=== PATIENT | female | born 1940 | race Caucasian/White ===

== ENCOUNTER 2017-04-29 08:06 | Emergency (ER) | payer MEDICARE, OTHER ==
[2017-04-29] MEDS ORDERED: OXYCODONE-ACETAMINOPHEN 5-325 MG TABLET PO ONE (08:44)
--- NOTE | 2017-04-29 08:44 | ER Document Report ---
ED Fall - General Chief Complaint: Fall Stated Complaint: FALL Time Seen by Provider: 04/29/17 08:15 Notes: Patient is a 76 year old female who presents to the Ed status post mechanical fall this AM. She states she was going to her bathroom when she lost her balance and fell on her left side. Suffered head injury without LOC, AMS, confusion, headache, N/V. Denies blood thinners. Admits to chest wall pain on her left side with pain on deep inhalation and certain movement, improves with bracing that side as well as ice. Denies shortness of breath. Admits to cough over the past three days. PMH: COPD on 2L NC, OA PSH: B/l TKA SH: former smoker TRAVEL OUTSIDE OF THE [place] IN LAST 30 DAYS: No - Related data Allergies/Adverse Reactions: amoxicillin trihydrate [From Augmentin] Allergy (Verified 06/15/15 12:23) clarithromycin [From Biaxin] Allergy (Verified 06/15/15 12:23) Potassium Clavulanate * [From Augmentin] Allergy (Verified 06/15/15 12:23) vancomycin [Vancomycin] Allergy (Verified 06/15/15 12:23) unk abx Allergy (Uncoded 06/15/15 12:23) Past Medical History - Social History Smoking Status: Former Smoker Frequency of alcohol use: None Drug Abuse: None Family History: Reviewed & Not Pertinent Patient has suicidal ideation: No Patient has homicidal ideation: No - Past Medical History Cardiac Medical History: Reports: Hx Congestive Heart Failure, Hx Hypercholesterolemia, Hx Hypertension Pulmonary Medical History: Reports: Hx COPD Renal/ Medical History: Denies: Hx Peritoneal Dialysis GI Medical History: Reports: Hx Ulcer Past Surgical History: Reports: Hx Breast Surgery, Hx Cholecystectomy, Hx Orthopedic Surgery - bilat knee replacement. - Immunizations Hx Diphtheria, Pertussis, Tetanus Vaccination: No Review of Systems - Review of Systems Constitutional: No symptoms reported Cardiovascular: See HPI Respiratory: See HPI Gastrointestinal: No symptoms reported Neurological/Psychological: See HPI -: Yes All other systems reviewed and negative Physical Exam - Vital signs Vitals: Temp Pulse Resp BP Pulse Ox 98 F 96 24 H 116/66 95 04/29/17 08:31 04/29/17 08:31 04/29/17 08:31 04/29/17 08:31 04/29/17 08:31 - Notes Notes: PHYSICAL EXAMINATION: GENERAL: Well-appearing, well-nourished and in no acute distress. GCS 15 HEAD: Atraumatic, normocephalic. EYES: Pupils equal round and reactive to light, extraocular movements intact, sclera anicteric, conjunctiva are normal. ENT: Nares patent, oropharynx clear without exudates. Moist mucous membranes. No hemanotympanum . No blood in nares. No dental fracture NECK: Normal range of motion, supple without lymphadenopathy. Trachea midline LUNGS: chest wall tender over left lower ribs. breath sounds clear to auscultation bilaterally and equal. No wheezes rales or rhonchi. HEART: Regular rate and rhythm without murmurs. Pulses intact all throughout. ABDOMEN: Soft, nontender, nondistended abdomen. No guarding, no rebound. No masses appreciated. Musculoskeletal: Normal range of motion, no pitting or edema. No cyanosis. Hip non tender, stable. NEUROLOGICAL: Cranial nerves grossly intact. Normal speech, normal gait. Normal sensory, motor, and reflex exams. PSYCH: Normal mood, normal affect. SKIN: Warm, No active bleeding. Minimal bruising over left eye brow without tenderness, deformity Course - Re-evaluation Re-evalutation: 04/29/17 10:16 Patient is a 76-year-old female who is hemodynamically stable, no acute distress and afebrile. Chest x-ray shows evidence of a nondisplaced left seventh rib fracture. No evidence of skull fracture or acute hemorrhage noted on CT of the head. No evidence of acute injury noted on CT of the cervical spine. Patient feels better after medication for pain. We will ambulate her on pulse ox with her home O2 prior to discharge. 04/29/17 11:37 Patient able to ambulate with assitance per her baseline, satting low 90's without associated tachypnea. patient states she feels well and requesting to go home. Calling her son for transportation - Vital Signs Vital signs: Temp Pulse Resp BP Pulse Ox 98 F 96 24 H 116/66 95 04/29/17 08:31 04/29/17 08:31 04/29/17 08:31 04/29/17 08:31 04/29/17 08:31 - Diagnostic Test Radiology reviewed: Image reviewed, Reports reviewed Discharge - Discharge Clinical Impression: Fall Qualifiers: Encounter type: initial encounter Qualified Code(s): W19.XXXA - Unspecified fall, initial encounter Rib fracture Qualifiers: Encounter type: initial encounter Rib fracture type: single rib Fracture type: closed Laterality: left Qualified Code(s): S22.32XA - Fracture of one rib, left side, initial encounter for closed fracture Instructions: Rib Injuries and Fractures ([facility]) Additional Instructions: How to use the incentive spirometer 1.Sit on the edge of your bed if possible, or sit up as far as you can in bed. 2.Hold the incentive spirometer in an upright position. 3.Place the mouthpiece in your mouth and seal your lips tightly around it. 4.Breathe in slowly and as deeply as possible. Notice the yellow piston rising toward the top of the column. The yellow indicator should reach the blue outlined area. 5.Hold your breath as long as possible. Then exhale slowly and allow the piston to fall to the bottom of the column. 6.Rest for a few seconds and repeat steps one to five at least 10 times every hour. 7.Position the yellow indicator on the left side of the spirometer to show your best effort. Use the indicator as a goal to work toward during each slow deep breath. 8.After each set of 10 deep breaths, cough to be sure your lungs are clear. If you have an incision, support your incision when coughing by placing a pillow firmly against it. 9.Once you are able to get out of bed safely, take frequent walks and practice the cough. Prescriptions: Oxycodone HCl/Acetaminophen [Percocet 5-325 mg Tablet] 1 - 2 tab PO Q4H PRN #15 tablet PRN Reason: Referrals: DAVID STONE MD [Primary Care Provider] - Follow up in 3-5 days
--- NOTE | 2017-04-29 09:10 | RADIOLOGY REPORT (SQ) ---
EXAM DESCRIPTION: CT HEAD WITHOUT COMPLETED DATE/TIME: 04/29/2017 8:58 am REASON FOR STUDY: fall COMPARISON: Motion artifact TECHNIQUE: Axial images acquired through the brain without intravenous contrast. Images reviewed wi th bone, brain and subdural windows. Images stored on PACS. All CT scanners at this facility use dose modulation, iterative reconstruction, and/or weight based d osing when appropriate to reduce radiation dose to as low as reasonably achievable (ALARA). [facility]: Dose Right [facility]: CareDose [facility]: Dose Right [facility]: Teradose 4D [facility]: Smart Hurricane Party RADIATION DOSE: CT Rad equipment meets quality standard of care and radiation dose reduction techniq ues were employed. CTDIvol: 49.0 mGy. DLP: 783 mGy-cm. mGy. LIMITATIONS: Motion artifact FINDINGS: Motion artifact throughout the study. On images without motion, no gross acute intracranial hemorrhage, mass effect, or midline shift. No gross acute large territory ischemic change. There is bifrontal low attenuation likely from chronic small vessel disease. IMPRESSION: Limited study. No acute changes EVIDENCE OF ACUTE STROKE: NO. COMMENT: Quality ID # [id number]: Final reports with documentation of one or more dose reduction techniques (e.g., Automated exposure control, adjustment of the mA and/or kV according to patient size, use of iterative reconstruction technique) TECHNICAL DOCUMENTATION: JOB ID: [id number] [employer]- All Rights Reserved
--- NOTE | 2017-04-29 09:38 | RADIOLOGY REPORT (SQ) ---
EXAM DESCRIPTION: CT CERVICAL SPINE WITHOUT COMPLETED DATE/TIME: 04/29/2017 9:07 am REASON FOR STUDY: fall COMPARISON: CT brain same date TECHNIQUE: Axial images acquired through the cervical spine without intravenous contrast. Images re viewed with lung, soft tissue and bone windows. Reconstructed coronal and sagittal MPR images review ed. Images stored on PACS. All CT scanners at this facility use dose modulation, iterative reconstruction, and/or weight based d osing when appropriate to reduce radiation dose to as low as reasonably achievable (ALARA). [facility]: Dose Right [facility]: CareDose [facility]: Dose Right [facility]: Teradose 4D [facility]: Smart mii RADIATION DOSE: CT Rad equipment meets quality standard of care and radiation dose reduction techniq ues were employed. CTDIvol: 29.7 mGy. DLP: 584 mGy-cm. mGy. LIMITATIONS: Streak artifact from body habitus over the lower cervical region FINDINGS: ALIGNMENT: Anatomic, with minimal anterolisthesis of C3 over C4 related to facet arthropat hy. Mild anterolisthesis of C7 over T1 related to advanced facet arthropathy. MINERALIZATION: Normal. VERTEBRAL BODIES: No fractures or dislocation. DISCS: Multilevel disc space narrowing with osteophytes. FACETS, LATERAL MASSES, POSTERIOR ELEMENTS: Facet arthropathy. No fractures. No dislocation. No ac hamilton findings. HARDWARE: None in the spine. VISUALIZED RIBS: No fractures. LUNG APICES AND SOFT TISSUES: No significant or acute findings. Old calcified nuchal ligament. OTHER: No other significant finding. IMPRESSION: Limited negative study. Diffuse degenerative changes. No acute displaced fracture. TECHNICAL DOCUMENTATION: JOB ID: [id number] Quality ID # [id number]: Final reports with documentation of one or more dose reduction techniques (e.g., Au tomated exposure control, adjustment of the mA and/or kV according to patient size, use of iterative reconstruction technique) 2010 [employer]- All Rights Reserved
--- NOTE | 2017-04-29 09:41 | RADIOLOGY REPORT (SQ) ---
EXAM DESCRIPTION: RIBS LEFT W/PA CHEST COMPLETED DATE/TIME: 04/29/2017 9:15 am REASON FOR STUDY: fall COMPARISON: AP chest 11/17/2015 TECHNIQUE: Frontal view of the chest and additional views of the left ribs acquired. NUMBER OF VIEWS: PA chest, left rib detail three views LIMITATIONS: None. FINDINGS: FRONTAL CXR: No acute infiltrates. Minimal left lower pleural thickening adjacent to a no ndisplaced lateral left 7th rib fracture. No pneumothorax. No pleural effusions. Moderate to marke d cardiomegaly. RIBS: Acute nondisplaced left lateral 7th rib fracture. OTHER: Advanced arthritis both shoulders IMPRESSION: Minimal left pleural thickening adjacent to a nondisplaced acute left lateral 7th rib fr acture COMMENT: SITE OF TRAUMA/COMPLAINT MARKED/STAMP COMPLETED: YES. TECHNICAL DOCUMENTATION: JOB ID: [id number] [employer]- All Rights Reserved
[2017-04-29] MEDS ORDERED: ALBUTEROL SULFATE 0.083% NEB 2.5 MG/3 ML AMPUL NEB ONE (10:05)
[2017-04-29 13:26] VITALS: BP 120/56
== END 2017-04-29 13:03 | disposition home or self-care (01) ==
LOC: ER 08:06
DX: S22.32XA Fracture of one rib, left side, initial encounter for closed fracture (principal); S09.90XA Unspecified injury of head, initial encounter; R07.89 Other chest pain; W19.XXXA Unspecified fall, initial encounter; Y93.89 Activity, other specified; R06.82 Tachypnea, not elsewhere classified; R05 Cough; I10 Essential (primary) hypertension; J44.9 Chronic obstructive pulmonary disease, unspecified; Z87.891 Personal history of nicotine dependence; Z88.0 Allergy status to penicillin; Z88.1 Allergy status to other antibiotic agents
CPT/HCPCS: 94640; 99284; 71101; 70450; 72125; A9270 ×2

== ENCOUNTER 2018-10-10 15:23 | Emergency (ER) | payer MEDICARE, OTHER ==
[2018-10-10 15:27] VITALS: BP 138/53
--- NOTE | 2018-10-10 16:18 | ER Document Report ---
ED Medical Screen (RME) - General Chief Complaint: General Weakness Stated Complaint: GENERAL WEAKNESS Time Seen by Provider: 10/10/18 16:12 Primary Care Provider: DAVID STONE MD [Primary Care Provider] - Follow up as needed Mode of Arrival: Medic Information source: Patient, Relative Notes: Patient presents emergency department with feeling weak. She reports she went outside on her patio using her walker and sat outside for a while and became very weak. Patient also reports that she has sores to her bottom that are bleeding and she believes she is bleeding too much. She denies fever vomiting diarrhea no complaints of chest pain. Patient is short of breath is on home oxygen 95% with 2 L nasal cannula. And also is a hemophilia. Patient's biggest concern at this time are the sores on her bottom that are bleeding. I have greeted and performed a rapid initial assessment of this patient. A comprehensive ED assessment and evaluation of the patient, analysis of test results and completion of the medical decision making process will be conducted by additional ED providers. Dictation of this chart was performed using voice recognition software; therefore, there may be some unintended grammatical errors. TRAVEL OUTSIDE OF THE [place] IN LAST 30 DAYS: No - Related Data Allergies/Adverse Reactions: ANNE Inhibitors Allergy (Verified 10/10/18 15:25) amoxicillin trihydrate [From Augmentin] Allergy (Verified 06/15/15 12:23) clarithromycin [From Biaxin] Allergy (Verified 06/15/15 12:23) NSAIDS (Non-Steroidal Anti-Inflamma Allergy (Verified 10/10/18 15:25) Potassium Clavulanate * [From Augmentin] Allergy (Verified 06/15/15 12:23) sulindac [From Clinoril] Allergy (Verified 10/10/18 15:25) vancomycin [Vancomycin] Allergy (Verified 06/15/15 12:23) unk abx Allergy (Uncoded 06/15/15 12:23) Past Medical History - Past Medical History Cardiac Medical History: Reports: Hx Congestive Heart Failure, Hx Hypercholesterolemia, Hx Hypertension Pulmonary Medical History: Reports: Hx COPD Renal/ Medical History: Denies: Hx Peritoneal Dialysis GI Medical History: Reports: Hx Ulcer Past Surgical History: Reports: Hx Breast Surgery, Hx Cholecystectomy, Hx Orthopedic Surgery - bilat knee replacement. - Immunizations Hx Diphtheria, Pertussis, Tetanus Vaccination: No Physical Exam - Vital signs Vitals: Temp Pulse Resp BP Pulse Ox 99.0 F 96 22 H 138/53 H 95 10/10/18 15:26 10/10/18 15:26 10/10/18 15:26 10/10/18 15:26 10/10/18 15:26 Course - Vital Signs Vital signs: Temp Pulse Resp BP Pulse Ox 99.0 F 96 22 H 138/53 H 95 10/10/18 15:26 10/10/18 15:26 10/10/18 15:26 10/10/18 15:26 10/10/18 15:26 Doctor's Discharge - Discharge Referrals: DAVID STONE MD [Primary Care Provider] - Follow up as needed
[2018-10-10 17:44] LABS: ABSOLUTE BASOPHILS # (AUTO) 0.1 10^3/uL (0.0-0.2); ABSOLUTE EOSINOPHILS # (AUTO) 0.2 10^3/uL (0.0-0.6); ABSOLUTE LYMPHOCYTES (AUTO) 0.8 10^3/uL (0.5-4.7); ABSOLUTE MONOCYTES (AUTO) 0.5 10^3/uL (0.1-1.4); ABSOLUTE NEUT (AUTO) 4.8 10^3/uL (1.7-8.2); EOSINOPHILS % (AUTO) 2.9 % (0-6); HEMATOCRIT 30.6 % (36.0-47.0); HEMOGLOBIN 9.9 g/dL (12.0-15.5); MEAN CORPUSCULAR HEMOGLOBIN 29.5 pg (27.0-33.4); MEAN CORPUSCULAR HGB CONC 32.2 g/dL (32.0-36.0); MEAN CORPUSCULAR VOLUME 92 fl (80-97); MONOCYTES % (AUTO) 8.5 % (3-13); PLATELET COUNT 182 10^3/uL (150-450); RED BLOOD COUNT 3.35 10^6/uL (3.72-5.28); RED CELL DISTRIBUTION WIDTH 16.2 % (11.5-14.0); SEGMENTED NEUTROPHILS % (AUTO) 75.6 % (42-78); TOTAL CELLS COUNTED % (AUTO) 100 %; WHITE BLOOD COUNT 6.3 10^3/uL (4.0-10.5)
[2018-10-10 18:08] LABS: ALANINE AMINOTRANSFERASE 22 U/L (9-52); ALBUMIN 4.2 g/dL (3.5-5.0); ALKALINE PHOSPHATASE 90 U/L (38-126); ANION GAP 7 (5-19); ASPARTATE AMINO TRANSFERASE 18 U/L (14-36); BILIRUBIN,DIRECT 0.3 mg/dL (0.0-0.4); BILIRUBIN,TOTAL 0.6 mg/dL (0.2-1.3); BLOOD UREA NITROGEN 32 mg/dL (7-20); CALCIUM 9.4 mg/dL (8.4-10.2); CARBON DIOXIDE 37 mmol/L (22-30); CHLORIDE 95 mmol/L (98-107); GLUCOSE 97 mg/dL (75-110); POTASSIUM 4.6 mmol/L (3.6-5.0); SODIUM 138.8 mmol/L (137-145)
--- NOTE | 2018-10-10 18:29 | ER Document Report ---
ED General - General Chief Complaint: General Weakness Stated Complaint: GENERAL WEAKNESS Time Seen by Provider: 10/10/18 16:12 Primary Care Provider: [facility] [Provider Group] - Follow up tomorrow DAVID STONE MD [Primary Care Provider] - Follow up tomorrow Mode of Arrival: Medic Notes: Patient is a 78-year-old female with multiple chronic medical conditions including hypertension, CHF and COPD that presents to the emergency department for chief complaint of lightheadedness. Patient states that she went outside today to try to feel better because she was having some nausea was feeling generally weak over the past few days, and after she was outside she was feel little better she got up and felt somewhat lightheaded afterwards, but she did not pass out. She mentions that she has increased on her Lasix, from 40 mg to 80 mg twice daily, for the most part she is been taking at 80 mg every day, and most days taking it twice daily for the past 2 weeks. She has noticed that the swelling in her legs is gone down. She is also on several other medications for blood pressure. She does wear oxygen at home, has not had a increase in anytime recently. She also mentions that she has 2 bedsores, that she is been trying to treat at home, without much improvement. There are on both of her thighs on the posterior aspects. She states occasionally she gets some bleeding from them, has not noticed any pus drainage. She denies any fevers, chills, night sweats, chest pain, vomiting or abdominal pain. Past Medical History: COPD, CHF, hypertension, osteoarthritis, chronic kidney disease Past Surgical History: Total knee arthroplasties Social History: Denies tobacco, alcohol or drug use. Family History: Reviewed and noncontributory for presenting illness Allergies: Reviewed, see documented allergy list. REVIEW OF SYSTEMS: Other than noted above, the 12 point review of systems was reviewed with the patient and were negative, all pertinent findings are included in the HPI. PHYSICAL EXAMINATION: Vital signs reviewed, nursing noted reviewed. GENERAL: Morbidly obese, elderly female, but in no acute distress HEAD: Atraumatic, normocephalic. EYES: Eyes appear normal, extraocular movements intact, sclera anicteric, conjunctiva are normal. ENT: nares patent, oropharynx clear without exudates. Moist mucous membranes. NECK: Normal range of motion, supple without lymphadenopathy LUNGS: Trace wheezing noted bilaterally in all lung zhao, but no acute respir atory distress. HEART: Regular rate and rhythm without murmurs ABDOMEN: Soft, nontender, normoactive bowel sounds. No rebound, guarding, or rigidity. No masses appreciated. EXTREMITIES: good range of motion, trace pedal edema bilaterally in the lower extremities, mild tenderness palpation of the posterior thighs which she is noted to have decubitus ulcers. NEUROLOGICAL: No focal neurological deficits. Moves all extremities spontaneously Motor and sensory grossly intact on exam. PSYCH: Normal mood, normal affect. SKIN: Warm, Dry, normal turgor, candidal rash noted under the patient's pannus bilaterally, worse on the left compared to the right, no bleeding, there are 2 unstageable decubitus ulcers noted on the patient's posterior thighs, no active bleeding or drainage at this time. TRAVEL OUTSIDE OF THE [place] IN LAST 30 DAYS: No - Related Data Allergies/Adverse Reactions: ANNE Inhibitors Allergy (Verified 10/10/18 15:25) amoxicillin trihydrate [From Augmentin] Allergy (Verified 06/15/15 12:23) clarithromycin [From Biaxin] Allergy (Verified 06/15/15 12:23) NSAIDS (Non-Steroidal Anti-Inflamma Allergy (Verified 10/10/18 15:25) Potassium Clavulanate * [From Augmentin] Allergy (Verified 06/15/15 12:23) sulindac [From Clinoril] Allergy (Verified 10/10/18 15:25) vancomycin [Vancomycin] Allergy (Verified 06/15/15 12:23) unk abx Allergy (Uncoded 06/15/15 12:23) Past Medical History - General Information source: Patient, Relative - Social History Smoking Status: Never Smoker Frequency of alcohol use: None Drug Abuse: None Family History: Reviewed & Not Pertinent Patient has suicidal ideation: No Patient has homicidal ideation: No - Past Medical History Cardiac Medical History: Reports: Hx Congestive Heart Failure, Hx Hype rcholesterolemia, Hx Hypertension Pulmonary Medical History: Reports: Hx COPD Renal/ Medical History: Denies: Hx Peritoneal Dialysis GI Medical History: Reports: Hx Ulcer Past Surgical History: Reports: Hx Breast Surgery, Hx Cholecystectomy, Hx Orthopedic Surgery - bilat knee replacement. - Immunizations Hx Diphtheria, Pertussis, Tetanus Vaccination: No Physical Exam - Vital signs Vitals: Temp Pulse Resp BP Pulse Ox 99.0 F 96 22 H 138/53 H 95 10/10/18 15:26 10/10/18 15:26 10/10/18 15:26 10/10/18 15:26 10/10/18 15:26 Course - Re-evaluation Re-evalutation: Patient seen and examined vital signs reviewed. Laboratory data and/or imaging were ordered as appropriate for the patient's presenting symptoms and complaint, with consideration of any critical or life threatening conditions that may be associated with their obtained history and exam as noted above. Patient was treated with small bolus of IV fluids of 250 mL's as the patient was noted to be mildly hypertensive, and this did improve her blood pressure to a stable range, without overloading her. Results were reviewed when available and demonstrated contraction alkalosis, chronic kidney disease, somewhat worsened from her prior. She was noted to have anemia, which apparently is chronic according to the patient. The patient was re-evaluated and was hemodynamically stable, and felt improved, her wounds were dressed in the emergency department, advised to follow-up with the wound clinic, believe the patient was over diuresed, likely causing her lightheadedness earlier today, and orthostasis, advised her to follow-up with her primary care physician tomorrow to discuss decreasing her Lasix dosing, perhaps to 60 mg versus 80, she was agreeable to this, she was given referral to wound care, and given a prescription for miconazole powder for her candidal rash. Results were discussed with the patient at this point, after careful consideration I feel that that patient can be discharged from the emergency department, the patient was educated treatments and reasons to return to the emergency department based on their presumed diagnosis as noted above, they were advised to followup with a primary care physician in 2-3 days. Patient was agreeable to plan of care. *Note is created using voice recognition software and may contain spelling, syntax or grammatical errors. Laboratory 10/10/18 10/10/18 10/10/18 17:30 17:30 19:26 WBC 6.3 RBC 3.35 L Hgb 9.9 L Hct 30.6 L MCV 92 MCH 29.5 MCHC 32.2 RDW 16.2 H Plt Count 182 Seg Neutrophils % 75.6 Lymphocytes % 12.0 L Monocytes % 8.5 Eosinophils % 2.9 Basophils % 1.0 Absolute Neutrophils 4.8 Absolute Lymphocytes 0.8 Absolute Monocytes 0.5 Absolute Eosinophils 0.2 Absolute Basophils 0.1 Sodium 138.8 Potassium 4.6 Chloride 95 L Carbon Dioxide 37 H Anion Gap 7 BUN 32 H Creatinine 1.39 H Est GFR ( Amer) 44 L Est GFR (Non-Af Amer) 36 L Glucose 97 Calcium 9.4 Total Bilirubin 0.6 Direct Bilirubin 0.3 Neonat Total Bilirubin Not Reportable Neonat Direct Bilirubin Not Reportable Neonat Indirect Bili Not Reportable AST 18 ALT 22 Alkaline Phosphatase 90 Total Protein 7.0 Albumin 4.2 Urine Color YELLOW Urine Appearance SLIGHTLY-CLOUDY Urine pH 8.0 Ur Specific Mode 1.012 Urine Protein NEGATIVE Urine Glucose (UA) NEGATIVE Urine Ketones NEGATIVE Urine Blood NEGATIVE Urine Nitrite NEGATIVE Urine Bilirubin NEGATIVE Urine Urobilinogen NEGATIVE Ur Leukocyte Esterase NEGATIVE Urine WBC (Auto) 1 Urine RBC (Auto) 1 Urine Bacteria (Auto) TRACE Squamous Epi Cells Auto 7 Urine Mucus (Auto) RARE Urine Ascorbic Acid NEGATIVE - Vital Signs Vital signs: Temp Pulse Resp BP Pulse Ox 99.0 F 96 22 H 138/53 H 95 10/10/18 15:26 10/10/18 15:26 10/10/18 15:26 10/10/18 15:26 10/10/18 15:26 - Laboratory Result Diagrams: 10/10/18 17:30 10/10/18 17:30 Laboratory results interpreted by me: 10/10/18 10/10/18 17:30 17:30 RBC 3.35 L Hgb 9.9 L Hct 30.6 L RDW 16.2 H Lymphocytes % 12.0 L Chloride 95 L Carbon Dioxide 37 H BUN 32 H Creatinine 1.39 H Est GFR ( Amer) 44 L Est GFR (Non-Af Amer) 36 L Discharge - Discharge Clinical Impression: Dehydration, Candidal dermatitis, Metabolic alkalosis Pressure ulcer Qualifiers: Pressure injury location: thigh Pressure injury stage: unspecified pressure injury stage Laterality: unspecified laterality Qualified Code(s): L89.209 - Pressure ulcer of unspecified hip, unspecified stage Condition: Stable Disposition: HOME, SELF-CARE Instructions: Dehydration ([facility]) Additional Instructions: Please follow-up with your primary care physician as well as the wound clinic, you got overly dehydrated from too much Lasix, you need to call to discuss this with them. I also recommend following up with the wound clinic, to properly treat end-stage the wounds on the back of your legs, also use the powder for the rash on your abdomen. If you have worsening symptoms, feel lightheaded or pass out, please return to the emergency department and call 911. Prescriptions: RX: Miconazole Nitrate [Antifungal Powder] 1 applic TP BID #71 gm Referrals: DAVID STONE MD [Primary Care Provider] - Follow up tomorrow [facility] [Provider Group] - Follow up tomorrow
[2018-10-10] MEDS ORDERED: NORMAL SALINE 250 ML IV ONE (18:43)
--- NOTE | 2018-10-10 19:27 | EKG REPORT ---
SEVERITY:- ABNORMAL ECG - SINUS RHYTHM RIGHT BUNDLE BRANCH BLOCK : Confirmed by: Mario Andrew MD 10-Oct-2018 19:26:45
[2018-10-10] MEDS ORDERED: IPRATROPIUM/ALBUTEROL 0.5-2.5 MG/3 ML AMPUL NEB ONE ×2 (19:38→19:41)
[2018-10-10 20:06] LABS: APPEARANCE,URINE SLIGHTLY-CLOUDY; BILIRUBIN,URINE NEGATIVE (NEGATIVE); COLOR,URINE YELLOW; GLUCOSE, URINE NEGATIVE (NEGATIVE); KETONES,URINE NEGATIVE (NEGATIVE); LEUKOCYTE ESTERASE,URINE NEGATIVE (NEGATIVE); NITRITE,URINE NEGATIVE (NEGATIVE); PROTEIN,URINE NEGATIVE (NEGATIVE); URINE SPECIFIC GRAVITY 1.012; UROBILINOGEN,URINE NEGATIVE mg/dL (<2.0)
== END 2018-10-10 21:11 | disposition home or self-care (01) ==
LOC: ER 15:23
DX: E86.0 Dehydration (principal); B37.2 Candidiasis of skin and nail; L89.40 Pressure ulcer of contiguous site of back, buttock and hip, unspecified stage; I13.0 Hypertensive heart and chronic kidney disease with heart failure and stage 1 through stage 4 chronic kidney disease, or unspecified chronic kidney disease; I50.9 Heart failure, unspecified; N18.9 Chronic kidney disease, unspecified; D63.1 Anemia in chronic kidney disease; Z79.899 Other long term (current) drug therapy; E87.3 Alkalosis; R53.1 Weakness; R42 Dizziness and giddiness; J44.9 Chronic obstructive pulmonary disease, unspecified; Z99.81 Dependence on supplemental oxygen; Z88.8 Allergy status to other drugs, medicaments and biological substances; Z88.0 Allergy status to penicillin; Z88.1 Allergy status to other antibiotic agents
CPT/HCPCS: 93005; 94640; 99285; 96360; 36415; 85025; 80053; 81001; 93010; J7050; A9270; J7620

== ENCOUNTER 2019-02-10 13:50 | Inpatient (IN) | payer MEDICARE, OTHER ==
[2019-02-10 15:00] LABS: ALKALINE PHOSPHATASE 93 U/L (38-126); ASPARTATE AMINO TRANSFERASE 16 U/L (14-36); BILIRUBIN,DIRECT 0.2 mg/dL (0.0-0.4); BILIRUBIN,TOTAL 0.6 mg/dL (0.2-1.3); BLOOD UREA NITROGEN 26 mg/dL (7-20); CALCIUM 9.5 mg/dL (8.4-10.2); CHLORIDE 91 mmol/L (98-107); CREATINE KINASE 32 U/L (30-135); GLUCOSE 103 mg/dL (75-110); POTASSIUM 5.4 mmol/L (3.6-5.0); TOTAL PROTEIN 6.6 g/dL (6.3-8.2)
[2019-02-10 15:07] LABS: ABSOLUTE EOSINOPHILS # (AUTO) 0.1 10^3/uL (0.0-0.6); ABSOLUTE LYMPHOCYTES (AUTO) 1.6 10^3/uL (0.5-4.7); ABSOLUTE MONOCYTES (AUTO) 0.7 10^3/uL (0.1-1.4); ABSOLUTE NEUT (AUTO) 6.7 10^3/uL (1.7-8.2); ANION GAP 8 (5-19); BASOPHILS % (AUTO) 0.5 % (0-2); CARBON DIOXIDE 38 mmol/L (22-30); HEMATOCRIT 32.9 % (36.0-47.0); HEMOGLOBIN 10.1 g/dL (12.0-15.5); LYMPHOCYTES % (AUTO) 17.6 % (13-45); MEAN CORPUSCULAR HEMOGLOBIN 27.7 pg (27.0-33.4); MEAN CORPUSCULAR HGB CONC 30.6 g/dL (32.0-36.0); MEAN CORPUSCULAR VOLUME 90 fl (80-97); MONOCYTES % (AUTO) 7.1 % (3-13); PLATELET COUNT 178 10^3/uL (150-450); RED BLOOD COUNT 3.64 10^6/uL (3.72-5.28); RED CELL DISTRIBUTION WIDTH 16.4 % (11.5-14.0); SEGMENTED NEUTROPHILS % (AUTO) 73.8 % (42-78); TOTAL CELLS COUNTED % (AUTO) 100 %; WHITE BLOOD COUNT 9.2 10^3/uL (4.0-10.5)
[2019-02-10 15:12] LABS: CREATINE KINASE MB 0.41 ng/mL (<4.55)
[2019-02-10 15:13] LABS: TROPONIN I < 0.012 ng/mL
[2019-02-10 15:24] LABS: VENOUS BLOOD BASE EXCESS 8.9 mmol/L; VENOUS BLOOD HCO3 38.2 mmol/L (20-32); VENOUS BLOOD PH 7.28 (7.30-7.42)
--- NOTE | 2019-02-10 16:05 | RADIOLOGY REPORT (SQ) ---
EXAM DESCRIPTION: CHEST SINGLE VIEW COMPLETED DATE/TIME: 02/10/2019 3:56 pm REASON FOR STUDY: bed 4 resp distress COMPARISON: None. EXAM PARAMETERS: NUMBER OF VIEWS: One view. TECHNIQUE: Single frontal radiographic view of the chest acquired. RADIATION DOSE: NA LIMITATIONS: None. FINDINGS: LUNGS AND PLEURA: Diffuse bilateral interstitial opacities. No dense consolidation. No l arge effusion. No pneumothorax. MEDIASTINUM AND HILAR STRUCTURES: No masses. Contour normal. HEART AND VASCULAR STRUCTURES: Enlarged cardiac silhouette and central vascular congestion, stable. Aortic atherosclerosis. BONES: No acute findings. Decreased mineralization. Thoracic spondylosis. HARDWARE: None in the chest. OTHER: No other significant finding. IMPRESSION: Stable cardiomegaly with vascular congestion and interstitial edema. No large effusion. TECHNICAL DOCUMENTATION: JOB ID: [id number] [employer]- All Rights Reserved Reading location - IP/workstation name: [email or web address]
[2019-02-10] MEDS ORDERED: IPRATROPIUM/ALBUTEROL 0.5-2.5 MG/3 ML AMPUL NEB ONE (16:15)
--- NOTE | 2019-02-10 16:36 | ER Document Report ---
ED Respiratory Problem - General Chief Complaint: Shortness Of Breath Stated Complaint: DIFFICULTY BREATHING Time Seen by Provider: 02/10/19 14:40 Mode of Arrival: Medic Information source: Patient, Emergency Med Personnel Notes: Patient is an 78-year-old female with past medical history of COPD presenting to the emergency department in acute respiratory distress. EMS reports show that patient had a neighbor called EMS due to increased shortness of breath. They state on their arrival she had oxygen saturations in the mid 70s. Patient reports cough and congestion lately, denies any fever, nausea or vomiting. Patient's family members are at bedside. TRAVEL OUTSIDE OF THE [place] IN LAST 30 DAYS: No - Related Data Allergies/Adverse Reactions: ANNE Inhibitors Allergy (Verified 10/10/18 15:25) amoxicillin trihydrate [From Augmentin] Allergy (Verified 06/15/15 12:23) clarithromycin [From Biaxin] Allergy (Verified 06/15/15 12:23) NSAIDS (Non-Steroidal Anti-Inflamma Allergy (Verified 10/10/18 15:25) Potassium Clavulanate * [From Augmentin] Allergy (Verified 06/15/15 12:23) sulindac [From Clinoril] Allergy (Verified 10/10/18 15:25) vancomycin [Vancomycin] Allergy (Verified 06/15/15 12:23) unk abx Allergy (Uncoded 06/15/15 12:23) Past Medical History - General Information source: Patient - Social History Smoking Status: Former Smoker Frequency of alcohol use: None Drug Abuse: None Family History: Reviewed & Not Pertinent Patient has suicidal ideation: No Patient has homicidal ideation: No - Past Medical History Cardiac Medical History: Reports: Hx Congestive Heart Failure, Hx Hypercholesterolemia, Hx Hypertension Pulmonary Medical History: Reports: Hx COPD Renal/ Medical History: Denies: Hx Peritoneal Dialysis GI Medical History: Reports: Hx Ulcer Past Surgical History: Reports: Hx Breast Surgery, Hx Cholecystectomy, Hx Orthopedic Surgery - bilat knee replacement. - Immunizations Hx Diphtheria, Pertussis, Tetanus Vaccination: No Review of Systems - Review of Systems Constitutional: denies: Chills, Fever EENT: No symptoms reported Cardiovascular: Dyspnea. denies: Chest pain, Palpitations Respiratory: Cough, Short of breath, Wheezing Gastrointestinal: No symptoms reported Genitourinary: No symptoms reported Female Genitourinary: No symptoms reported Musculoskeletal: No symptoms reported Skin: No symptoms reported Hematologic/Lymphatic: No symptoms reported Neurological/Psychological: No symptoms reported Physical Exam - Vital signs Vitals: Temp 98.2 F 02/10/19 14:41 - Notes Notes: PHYSICAL EXAMINATION: GENERAL: Disheveled, appears younger than stated age, morbidly obese. HEAD: Atraumatic, normocephalic. EYES: Pupils equal round and reactive to light, extraocular movements intact, conjunctiva are normal. ENT: Nares patent, oropharynx clear without exudates. Moist mucous membranes. NECK: Normal range of motion, supple without lymphadenopathy LUNGS: Expiratory wheezes noted bilaterally, increased work of breathing. HEART: Regular rate and rhythm without murmurs ABDOMEN: Soft, nontender, nondistended abdomen. No guarding, no rebound. No masses appreciated. Female : No CVA tenderness. Musculoskeletal: Normal range of motion, no pitting or edema. No cyanosis. NEUROLOGICAL: Cranial nerves grossly intact. Normal speech, normal gait. Normal sensory, motor exams PSYCH: Normal mood, normal affect. SKIN: Warm, Dry, normal turgor, no rashes or lesions noted. Course - Re-evaluation Re-evalutation: At the time of my initial evaluation patient has already been in the department for 1 hour. When I went into the patient she was on 4 L of oxygen via nasal cannula. Her oxygen saturations were 95% however her work of breathing was continued to be increased. I did immediately place orders for BiPAP and called them personally to come place patient on BiPAP. Labs as recorded below, VBG was drawn very shortly after patient was placed on BiPAP. On reevaluation patient's work of breathing has dramatically improved after being placed on BiPAP. Urinalysis is still pending as patient has not been able to provide a urine sample. Patient reports she is feeling mildly improved and is resting more comfortably on BiPAP. Laboratory 02/10/19 02/10/19 02/10/19 14:20 14:20 14:20 WBC 9.2 RBC 3.64 L Hgb 10.1 L Hct 32.9 L MCV 90 MCH 27.7 MCHC 30.6 L RDW 16.4 H Plt Count 178 Lymph % (Auto) 17.6 Anderson % (Auto) 7.1 Eos % (Auto) 1.0 Baso % (Auto) 0.5 Absolute Neuts (auto) 6.7 Absolute Lymphs (auto) 1.6 Absolute Monos (auto) 0.7 Absolute Eos (auto) 0.1 Absolute Basos (auto) 0.0 Seg Neutrophils % 73.8 VBG pH VBG pCO2 VBG HCO3 VBG Base Excess Sodium 137.1 Potassium 5.4 H Chloride 91 L Carbon Dioxide 38 H Anion Gap 8 BUN 26 H Creatinine 1.27 H Est GFR ( Amer) 49 L Est GFR (MDRD) Non-Af 40 L Glucose 103 Calcium 9.5 Total Bilirubin 0.6 Direct Bilirubin 0.2 Neonat Total Bilirubin Not Reportable Neonat Direct Bilirubin Not Reportable Neonat Indirect Bili Not Reportable AST 16 ALT 12 Alkaline Phosphatase 93 Creatine Kinase 32 CK-MB (CK-2) 0.41 Troponin I < 0.012 NT-Pro-B Natriuret Pep Total Protein 6.6 Albumin 4.0 02/10/19 02/10/19 14:20 15:10 WBC RBC Hgb Hct MCV MCH MCHC RDW Plt Count Lymph % (Auto) Anderson % (Auto) Eos % (Auto) Baso % (Auto) Absolute Neuts (auto) Absolute Lymphs (auto) Absolute Monos (auto) Absolute Eos (auto) Absolute Basos (auto) Seg Neutrophils % VBG pH 7.28 L VBG pCO2 84.0 H* VBG HCO3 38.2 H VBG Base Excess 8.9 Sodium Potassium Chloride Carbon Dioxide Anion Gap BUN Creatinine Est GFR ( Amer) Est GFR (MDRD) Non-Af Glucose Calcium Total Bilirubin Direct Bilirubin Neonat Total Bilirubin Neonat Direct Bilirubin Neonat Indirect Bili AST ALT Alkaline Phosphatase Creatine Kinase CK-MB (CK-2) Troponin I NT-Pro-B Natriuret Pep 349 Total Protein Albumin Chest X-Ray 02/10/19 13:53 IMPRESSION: Stable cardiomegaly with vascular congestion and interstitial edema. No large effusion. Called for hospitalist admission for COPD exacerbation. Patient accepted by Leo PINEDO. He did request that an arterial blood gas be drawn and he will come evaluate the patient in the emergency department. Orders placed. Patient and family members aware of plan of care. - Vital Signs Vital signs: Temp Pulse Resp BP Pulse Ox 98.2 F 24 H 133/66 H 96 02/10/19 14:41 02/10/19 17:01 02/10/19 17:00 02/10/19 17:56 - Laboratory Result Diagrams: 02/10/19 14:20 02/10/19 14:20 Laboratory results interpreted by me: 02/10/19 02/10/19 02/10/19 14:20 14:20 15:10 RBC 3.64 L Hgb 10.1 L Hct 32.9 L MCHC 30.6 L RDW 16.4 H VBG pH 7.28 L VBG pCO2 84.0 H* VBG HCO3 38.2 H Potassium 5.4 H Chloride 91 L Carbon Dioxide 38 H BUN 26 H Creatinine 1.27 H Est GFR ( Amer) 49 L Est GFR (MDRD) Non-Af 40 L Discharge - Discharge Clinical Impression: COPD exacerbation, Hypoxia Condition: Stable Disposition: ADMITTED INPATIENT Admitting Provider: Jeff (Hospitalist) Unit Admitted: Medical Floor
[2019-02-10] MEDS ORDERED: ONDANSETRON HCL INJ/PF 4 MG/2 ML SDV IV PRN (16:47)
[2019-02-10] MEDS ORDERED: ONDANSETRON 4 MG TAB.RAPDIS PO PRN (16:47)
[2019-02-10] MEDS ORDERED: ACETAMINOPHEN 325 MG TABLET PO PRN (16:47)
[2019-02-10] MEDS ORDERED: MAGNESIUM HYDROXIDE SUSP 30 ML UDCUP PO PRN (16:47)
[2019-02-10] MEDS ORDERED: IPRATROPIUM/ALBUTEROL 0.5-2.5 MG/3 ML AMPUL NEB PRN (16:47)
[2019-02-10] MEDS ORDERED: NORMAL SALINE 1000 ML 1,000 ML IV PRN (16:47)
--- NOTE | 2019-02-10 17:12 | PDOC H&P ---
History of Present Illness Admission Date/PCP: 02/10/19 16:47 DAVID STONE MD History of Present Illness: GHAZALA TOTH is a 78 year old female comes in for apparent COPD exacerbation. Patient is on the BiPAP machine so the history is given by the family. They state that earlier today she went out to the mailbox without her home oxygen and was found down on the ground able to get up because of shortness of breath. Currently patient wears oxygen at home 24 hours a day 7 days a week. When EMS got to the patient her O2 sats were in the 70s. He was given 2 breathing treatments and Solu-Medrol by EMS and another breathing treatment in the ER. Fortunately in the ER she was put on 4 L of O2 before it was corrected and then she was placed on BiPAP. Initial blood gas was venous with a pH of 7.28 PCO2 of 84 bicarb 38 base excess 8.9. Repeat blood gas is pending as he is being admitted now. She is somewhat resistant to being admitted but I told her she needs at least o ne day of BiPAP and further Solu-Medrol. She is really comfortable on the BiPAP machine now. She is DNR. Past Medical History Cardiac Medical History: Reports: Congestive Heart Failure, Hyperlipidema, Hypertension Pulmonary Medical History: Reports: Chronic Obstructive Pulmonary Disease (COPD) Psychiatric Medical History: Reports: None Past Surgical History Past Surgical History: Reports: Cholecystectomy, Orthopedic Surgery - bilat knee replacement. Social History Smoking Status: Unknown if Ever Smoked - Advance Directive Resuscitation Status: Do Not Resuscitate Family History Family History: Reviewed & Not Pertinent Parental Family History Reviewed: No Children Family History Reviewed: No Sibling(s) Family History Reviewed.: No Medication/Allergy Allergies/Adverse Reactions: ANNE Inhibitors Allergy (Verified 10/10/18 15:25) amoxicillin trihydrate [From Augmentin] Allergy (Verified 06/15/15 12:23) clarithromycin [From Biaxin] Allergy (Verified 06/15/15 12:23) NSAIDS (Non-Steroidal Anti-Inflamma Allergy (Verified 10/10/18 15:25) Potassium Clavulanate * [From Augmentin] Allergy (Verified 06/15/15 12:23) sulindac [From Clinoril] Allergy (Verified 10/10/18 15:25) vancomycin [Vancomycin] Allergy (Verified 06/15/15 12:23) unk abx Allergy (Uncoded 06/15/15 12:23) Review of Systems Constitutional: ABSENT: chills, fever(s), headache(s), weight gain, weight loss Respiratory: ABSENT: cough, hemoptysis Gastrointestinal: ABSENT: abdominal pain, constipation, diarrhea, hematemesis, hematochezia, nausea, vomiting Neurological: ABSENT: abnormal gait, abnormal speech, confusion, dizziness, focal weakness, syncope Psychiatric: ABSENT: anxiety, depression, homidical ideation, suicidal ideation Physical Exam Vital Signs: Temp Pulse Resp BP Pulse Ox 98.2 F 27 H 130/55 H 96 02/10/19 14:41 02/10/19 16:01 02/10/19 16:01 02/10/19 16:01 Intake & Output 02/09/19 02/10/19 02/11/19 06:59 06:59 06:59 Weight 136.078 kg General appearance: PRESENT: mild distress, other - Evidently patient was in her normal state of health until today when she walked out to the mailbox. Family denies any recent colds or flus or illnesses Respiratory exam: PRESENT: decreased breath sounds Cardiovascular exam: PRESENT: RRR. ABSENT: diastolic murmur, rubs, systolic murmur Neurological exam: PRESENT: alert, awake, oriented to person, oriented to place, oriented to time, oriented to situation, CN II-XII grossly intact. ABSENT: motor sensory deficit Psychiatric exam: PRESENT: anxious, other - Patient states she really does not want to be admitted, however family thinks it is a good idea as to also Results Laboratory Results: 02/10/19 14:20 02/10/19 14:20 02/10/19 02/10/19 02/10/19 14:20 14:20 15:10 WBC 9.2 RBC 3.64 L Hgb 10.1 L Hct 32.9 L MCV 90 MCH 27.7 MCHC 30.6 L RDW 16.4 H Plt Count 178 Seg Neutrophils % 73.8 VBG pH 7.28 L VBG pCO2 84.0 H* VBG HCO3 38.2 H VBG Base Excess 8.9 Sodium 137.1 Potassium 5.4 H Chloride 91 L Carbon Dioxide 38 H Anion Gap 8 BUN 26 H Creatinine 1.27 H Est GFR ( Amer) 49 L Glucose 103 Calcium 9.5 Total Bilirubin 0.6 AST 16 Alkaline Phosphatase 93 Total Protein 6.6 Albumin 4.0 02/10/19 02/10/19 02/10/19 14:20 14:20 14:20 Creatine Kinase 32 CK-MB (CK-2) 0.41 Troponin I < 0.012 NT-Pro-B Natriuret Pep 349 Impressions: Chest X-Ray 02/10/19 13:53 IMPRESSION: Stable cardiomegaly with vascular congestion and interstitial roxy a. No large effusion. Assessment and Plan - Diagnosis (1) Hyperlipidemia Is this a current diagnosis for this admission?: Yes (2) Congestive heart failure Is this a current diagnosis for this admission?: Yes (3) Dependence on continuous supplemental oxygen Is this a current diagnosis for this admission?: Yes (4) COPD exacerbation Is this a current diagnosis for this admission?: Yes (5) Hypoxia Is this a current diagnosis for this admission?: Yes - Plan Summary Summary: 02/10/2019 We will continue IV steroids 40 mg IV every 8 hours, not place patient on antibiotics at this time as there is no indication for sepsis or infection. We will ask respiratory therapy to monitor and regulate BiPAP. We will try to keep oxygen saturations in the low to mid 90s. Try to prevent fluid overload. Once patient's medications are entered into the chart will add as needed. Family states that patient is a DNR. I have reviewed previous medical records - Time Time Spent with patient: 35 or more minutes
[2019-02-10] MEDS ORDERED: DEXTROSE 40% GEL 15 GM TUBE PO PRN ×2 (17:13)
[2019-02-10] MEDS ORDERED: GLUCAGON,HUMAN RECOMB 1 MG INJ IM PRN (17:13)
[2019-02-10] MEDS ORDERED: DEXTROSE 50%-WATER 25 GM/50 ML DISP.SYRIN IV PRN ×2 (17:13)
[2019-02-10 18:01] LABS: ARTERIAL BLOOD BASE EXCESS 9.6 mmol/L; ARTERIAL BLOOD H2CO3 2.33 mmol/L (1.05-1.35); ARTERIAL BLOOD HCO3 38.4 mmol/L (20-24); ARTERIAL BLOOD O2 SATURATION 90.1 % (94-98); ARTERIAL BLOOD PH 7.31 (7.35-7.45); ARTERIAL BLOOD PO2 65.5 mmHg (80-100); ARTERIAL BLOOD TOTAL CO2 40.7 mmol/L (21-25)
[2019-02-10 18:02] LABS: ARTERIAL BLOOD FIO2 3L
[2019-02-10 18:03] LABS: ARTERIAL BLOOD PCO2 77.4 mmHg (35-45)
[2019-02-10] MEDS: METHYLPREDNISOLONE INJ 40 MG/1 ML SDV IV SCH (20:09)
[2019-02-10] MEDS: HEPARIN SOD (PORCINE) 5,000 UNIT/ML 1 ML VIAL SUBCUT SCH (23:09)
[2019-02-10] MEDS: FAMOTIDINE 20 MG TABLET PO SCH (23:10)
[2019-02-10] MEDS: INSULIN LISPRO 100 UNIT/ML 3 ML VIAL SUBCUT SCH (23:10)
--- NOTE | 2019-02-10 23:20 | EKG REPORT ---
SEVERITY:- ABNORMAL ECG - SINUS RHYTHM RBBB AND LPFB : Confirmed by: Sharri Oseguera MD 10-Feb-2019 23:19:40
[2019-02-10 23:27] LABS: APPEARANCE,URINE SLIGHTLY-CLOUDY; BILIRUBIN,URINE NEGATIVE (NEGATIVE); COLOR,URINE YELLOW; GLUCOSE, URINE NEGATIVE (NEGATIVE); KETONES,URINE NEGATIVE (NEGATIVE); LEUKOCYTE ESTERASE,URINE TRACE (NEGATIVE); NITRITE,URINE NEGATIVE (NEGATIVE); PROTEIN,URINE NEGATIVE (NEGATIVE); URINE SPECIFIC GRAVITY 1.015; UROBILINOGEN,URINE NEGATIVE mg/dL (<2.0)
[2019-02-11] MEDS: METHYLPREDNISOLONE INJ 40 MG/1 ML SDV IV SCH ×3 (00:35→17:42)
[2019-02-11 05:13] LABS: ABSOLUTE LYMPHOCYTES (AUTO) 0.4 10^3/uL (0.5-4.7); ABSOLUTE MONOCYTES (AUTO) 0.1 10^3/uL (0.1-1.4); BASOPHILS % (AUTO) 0.2 % (0-2); HEMATOCRIT 32.7 % (36.0-47.0); HEMOGLOBIN 10.2 g/dL (12.0-15.5); LYMPHOCYTES % (AUTO) 6.9 % (13-45); MEAN CORPUSCULAR HEMOGLOBIN 27.5 pg (27.0-33.4); MEAN CORPUSCULAR HGB CONC 31.3 g/dL (32.0-36.0); MEAN CORPUSCULAR VOLUME 88 fl (80-97); MONOCYTES % (AUTO) 1.5 % (3-13); PLATELET COUNT 167 10^3/uL (150-450); RED BLOOD COUNT 3.72 10^6/uL (3.72-5.28); RED CELL DISTRIBUTION WIDTH 15.9 % (11.5-14.0); SEGMENTED NEUTROPHILS % (AUTO) 91.4 % (42-78); TOTAL CELLS COUNTED % (AUTO) 100 %; WHITE BLOOD COUNT 5.4 10^3/uL (4.0-10.5)
[2019-02-11 05:20] LABS: ANION GAP 9 (5-19); BLOOD UREA NITROGEN 33 mg/dL (7-20); CALCIUM 9.5 mg/dL (8.4-10.2); CARBON DIOXIDE 38 mmol/L (22-30); CHLORIDE 90 mmol/L (98-107); GLUCOSE 137 mg/dL (75-110); POTASSIUM 5.8 mmol/L (3.6-5.0)
[2019-02-11] MEDS: HEPARIN SOD (PORCINE) 5,000 UNIT/ML 1 ML VIAL SUBCUT SCH ×3 (05:46→21:35)
[2019-02-11] MEDS: SODIUM POLYSTYRENE SULFONATE 15 GM/60 ML PO SCH ×2 (06:00→17:42)
[2019-02-11] MEDS: INSULIN LISPRO 100 UNIT/ML 3 ML VIAL SUBCUT SCH ×4 (08:45→21:31)
[2019-02-11] MEDS: DOCUSATE SODIUM 100 MG CAPSULE PO SCH (10:07)
[2019-02-11] MEDS: FAMOTIDINE 20 MG TABLET PO SCH ×2 (10:07→21:35)
[2019-02-11] MEDS ORDERED: LORAZEPAM INJ 2 MG/1 ML VIAL IV PRN (14:23)
--- NOTE | 2019-02-11 14:36 | PDOC PROGRESS REPORT ---
Subjective Progress Note for:: 02/11/19 Subjective:: 02/11/2019 Was admitted yesterday through the emergency room for COPD exacerbation. She went outside yesterday to the mailbox without her home O2, which she uses 24 ho urs a day 7 days a week She is feeling much better today sitting up in bed eating breakfast She is a little anxious however and will receive some Ativan as needed Reason For Visit: COPD EXACERBATION,CONGESTIVE HEART FAILURE, Physical Exam Vital Signs: Temp Pulse Resp BP Pulse Ox 98.3 F 80 24 H 133/58 H 95 02/11/19 00:12 02/11/19 00:12 02/11/19 04:12 02/11/19 00:12 02/11/19 08:00 Intake & Output 02/10/19 02/11/19 02/12/19 06:59 06:59 06:59 Intake Total 700 Balance 700 Weight 139 kg General appearance: PRESENT: no acute distress Respiratory exam: PRESENT: wheezes, other - Scattered Cardiovascular exam: PRESENT: RRR. ABSENT: diastolic murmur, rubs, systolic murmur Neurological exam: PRESENT: alert, awake, oriented to person, oriented to place, oriented to time, oriented to situation, CN II-XII grossly intact. ABSENT: motor sensory deficit Psychiatric exam: PRESENT: appropriate affect, normal mood. ABSENT: homicidal ideation, suicidal ideation Results Laboratory Results: 02/11/19 04:41 02/11/19 04:41 02/10/19 02/10/19 02/10/19 14:20 14:20 15:10 WBC 9.2 RBC 3.64 L Hgb 10.1 L Hct 32.9 L MCV 90 MCH 27.7 MCHC 30.6 L RDW 16.4 H Plt Count 178 Seg Neutrophils % 73.8 Carbonic Acid HCO3/H2CO3 Ratio ABG pH ABG pCO2 ABG pO2 ABG HCO3 ABG O2 Saturation ABG Base Excess VBG pH 7.28 L VBG pCO2 84.0 H* VBG HCO3 38.2 H VBG Base Excess 8.9 FiO2 Sodium 137.1 Potassium 5.4 H Chloride 91 L Carbon Dioxide 38 H Anion Gap 8 BUN 26 H Creatinine 1.27 H Est GFR ( Amer) 49 L Glucose 103 Calcium 9.5 Total Bilirubin 0.6 AST 16 Alkaline Phosphatase 93 Total Protein 6.6 Albumin 4.0 Urine Color Urine Appearance Urine pH Ur Specific Davis Urine Protein Urine Glucose (UA) Urine Ketones Urine Blood Urine Nitrite Ur Leukocyte Esterase Urine WBC (Auto) Urine RBC (Auto) 02/10/19 02/10/19 02/11/19 17:35 22:30 04:41 WBC 5.4 RBC 3.72 Hgb 10.2 L Hct 32.7 L MCV 88 MCH 27.5 MCHC 31.3 L RDW 15.9 H Plt Count 167 Seg Neutrophils % 91.4 H Carbonic Acid 2.33 H HCO3/H2CO3 Ratio 16:1 ABG pH 7.31 L ABG pCO2 77.4 H* ABG pO2 65.5 L ABG HCO3 38.4 H ABG O2 Saturation 90.1 L ABG Base Excess 9.6 VBG pH VBG pCO2 VBG HCO3 VBG Base Excess FiO2 3L Sodium Potassium Chloride Carbon Dioxide Anion Gap BUN Creatinine Est GFR ( Amer) Glucose Calcium Total Bilirubin AST Alkaline Phosphatase Total Protein Albumin Urine Color YELLOW Urine Appearance SLIGHTLY-CLOUDY Urine pH 5.0 Ur Specific Davis 1.015 Urine Protein NEGATIVE Urine Glucose (UA) NEGATIVE Urine Ketones NEGATIVE Urine Blood NEGATIVE Urine Nitrite NEGATIVE Ur Leukocyte Esterase TRACE H Urine WBC (Auto) 5 Urine RBC (Auto) 1 02/11/19 04:41 WBC RBC Hgb Hct MCV MCH MCHC RDW Plt Count Seg Neutrophils % Carbonic Acid HCO3/H2CO3 Ratio ABG pH ABG pCO2 ABG pO2 ABG HCO3 ABG O2 Saturation ABG Base Excess VBG pH VBG pCO2 VBG HCO3 VBG Base Excess FiO2 Sodium 136.5 L Potassium 5.8 H Chloride 90 L Carbon Dioxide 38 H Anion Gap 9 BUN 33 H Creatinine 1.19 Est GFR ( Amer) 53 L Glucose 137 H Calcium 9.5 Total Bilirubin AST Alkaline Phosphatase Total Protein Albumin Urine Color Urine Appearance Urine pH Ur Specific Davis Urine Protein Urine Glucose (UA) Urine Ketones Urine Blood Urine Nitrite Ur Leukocyte Esterase Urine WBC (Auto) Urine RBC (Auto) 02/10/19 02/10/19 02/10/19 14:20 14:20 14:20 Creatine Kinase 32 CK-MB (CK-2) 0.41 Troponin I < 0.012 NT-Pro-B Natriuret Pep 349 02/11/19 04:41 Creatine Kinase CK-MB (CK-2) Troponin I NT-Pro-B Natriuret Pep 658 H Impressions: Chest X-Ray 02/10/19 13:53 IMPRESSION: Stable cardiomegaly with vascular congestion and interstitial edema. No large effusion. Assessment and Plan - Diagnosis (1) Hyperlipidemia Is this a current diagnosis for this admission?: Yes (2) Congestive heart failure Is this a current diagnosis for this admission?: Yes (3) Dependence on continuous supplemental oxygen Is this a current diagnosis for this admission?: Yes (4) COPD exacerbation Is this a current diagnosis for this admission?: Yes (5) Hypoxia Is this a current diagnosis for this admission?: Yes - Plan Summary Summary: 02/10/2019 We will continue IV steroids 40 mg IV every 8 hours, not place patient on antibiotics at this time as there is no indication for sepsis or infection. We will ask respiratory therapy to monitor and regulate BiPAP. We will try to keep oxygen saturations in the low to mid 90s. Try to prevent fluid overload. Once patient's medications are entered into the chart will add as needed. Family states that patient is a DNR. I have reviewed previous medical records 02/11/2019 Much improved today on BiPAP. Potassium slightly up 5.8 GFR slightly up as well BUN up but creatinine down BNP today is 658, will increase fluids to 150/h up from 100 Anticipate discharge tomorrow morning - Time Time Spent with patient: 25-34 minutes
[2019-02-11] MEDS: NYSTATIN TOPICAL POWDER 15 GM TP SCH (17:46)
[2019-02-12] MEDS: METHYLPREDNISOLONE INJ 40 MG/1 ML SDV IV SCH ×3 (00:44→17:27)
[2019-02-12] MEDS: HEPARIN SOD (PORCINE) 5,000 UNIT/ML 1 ML VIAL SUBCUT SCH ×3 (06:06→22:14)
[2019-02-12] MEDS ORDERED: INFLUENZA QUAD (6MOS+) 2019-20 VAC 0.5 ML SYR IM ONE (08:00)
[2019-02-12] MEDS: INSULIN LISPRO 100 UNIT/ML 3 ML VIAL SUBCUT SCH ×4 (08:07→22:20)
[2019-02-12 09:04] LABS: ABSOLUTE LYMPHOCYTES (AUTO) 0.6 10^3/uL (0.5-4.7); ABSOLUTE MONOCYTES (AUTO) 0.4 10^3/uL (0.1-1.4); ABSOLUTE NEUT (AUTO) 6.6 10^3/uL (1.7-8.2); BASOPHILS % (AUTO) 0.2 % (0-2); HEMATOCRIT 31.9 % (36.0-47.0); HEMOGLOBIN 10.1 g/dL (12.0-15.5); LYMPHOCYTES % (AUTO) 7.6 % (13-45); MEAN CORPUSCULAR HEMOGLOBIN 27.8 pg (27.0-33.4); MEAN CORPUSCULAR HGB CONC 31.5 g/dL (32.0-36.0); MEAN CORPUSCULAR VOLUME 88 fl (80-97); MONOCYTES % (AUTO) 4.7 % (3-13); PLATELET COUNT 149 10^3/uL (150-450); RED BLOOD COUNT 3.62 10^6/uL (3.72-5.28); RED CELL DISTRIBUTION WIDTH 16.2 % (11.5-14.0); SEGMENTED NEUTROPHILS % (AUTO) 87.5 % (42-78); TOTAL CELLS COUNTED % (AUTO) 100 %; WHITE BLOOD COUNT 7.5 10^3/uL (4.0-10.5)
[2019-02-12 09:44] LABS: ANION GAP 7 (5-19); BLOOD UREA NITROGEN 37 mg/dL (7-20); CALCIUM 9.3 mg/dL (8.4-10.2); CARBON DIOXIDE 35 mmol/L (22-30); CHLORIDE 94 mmol/L (98-107); GLUCOSE 125 mg/dL (75-110); POTASSIUM 5.2 mmol/L (3.6-5.0)
[2019-02-12] MEDS: NORMAL SALINE 1000 ML 1,000 ML IV PRN ×2 (09:56→20:25)
[2019-02-12] MEDS: FAMOTIDINE 20 MG TABLET PO SCH ×2 (09:56→22:14)
[2019-02-12] MEDS: NYSTATIN TOPICAL POWDER 15 GM TP SCH ×2 (09:56→17:27)
[2019-02-12] MEDS: DOCUSATE SODIUM 100 MG CAPSULE PO SCH (09:56)
--- NOTE | 2019-02-12 13:03 | PDOC PROGRESS REPORT ---
Subjective Progress Note for:: 02/12/19 Subjective:: 02/11/2019 Was admitted yesterday through the emergency room for COPD exacerbation. She went outside yesterday to the mailbox without her home O2, which she uses 24 ho urs a day 7 days a week She is feeling much better today sitting up in bed eating breakfast She is a little anxious however and will receive some Ativan as needed 02/12/2019 Patient is going back and forth between BiPAP and room air, she is maintaining her sats however from at least 95 up to 99% whether she is on BiPAP or room air. We will notify respiratory to try to wean off of biPap Reason For Visit: COPD EXACERBATION,CONGESTIVE HEART FAILURE, Physical Exam Vital Signs: Temp Pulse Resp BP Pulse Ox 97.4 F 71 26 H 97/75 L 98 02/12/19 08:33 02/12/19 08:33 02/12/19 12:26 02/12/19 08:33 02/12/19 12:26 Intake & Output 02/11/19 02/12/19 02/13/19 06:59 06:59 06:59 Intake Total 700 1290 Output Total 300 Balance 700 990 Weight 139 kg 140.6 kg General appearance: PRESENT: mild distress Respiratory exam: PRESENT: rales Cardiovascular exam: PRESENT: RRR. ABSENT: diastolic murmur, rubs, systolic murmur Neurological exam: PRESENT: alert, awake, oriented to person, oriented to place, oriented to time, oriented to situation, CN II-XII grossly intact. ABSENT: motor sensory deficit Psychiatric exam: PRESENT: appropriate affect, normal mood. ABSENT: homicidal ideation, suicidal ideation Results Laboratory Results: 02/12/19 08:53 02/12/19 08:53 02/12/19 02/12/19 08:53 08:53 WBC 7.5 RBC 3.62 L Hgb 10.1 L Hct 31.9 L MCV 88 MCH 27.8 MCHC 31.5 L RDW 16.2 H Plt Count 149 L Seg Neutrophils % 87.5 H Sodium 136.2 L Potassium 5.2 H Chloride 94 L Carbon Dioxide 35 H Anion Gap 7 BUN 37 H Creatinine 1.09 Est GFR ( Amer) 58 L Glucose 125 H Calcium 9.3 02/10/19 02/10/19 02/10/19 14:20 14:20 14:20 Creatine Kinase 32 CK-MB (CK-2) 0.41 Troponin I < 0.012 NT-Pro-B Natriuret Pep 349 02/11/19 04:41 Creatine Kinase CK-MB (CK-2) Troponin I NT-Pro-B Natriuret Pep 658 H Impressions: Chest X-Ray 02/10/19 13:53 IMPRESSION: Stable cardiomegaly with vascular congestion and interstitial edema. No large effusion. Assessment and Plan - Diagnosis (1) Hyperlipidemia Is this a current diagnosis for this admission?: Yes (2) Congestive heart failure Is this a current diagnosis for this admission?: Yes (3) Dependence on continuous supplemental oxygen Is this a current diagnosis for this admission?: Yes (4) COPD exacerbation Is this a current diagnosis for this admission?: Yes (5) Hypoxia Is this a current diagnosis for this admission?: Yes - Plan Summary Summary: 02/10/2019 We will continue IV steroids 40 mg IV every 8 hours, not place patient on antibiotics at this time as there is no indication for sepsis or infection. We will ask respiratory therapy to monitor and regulate BiPAP. We will try to keep oxygen saturations in the low to mid 90s. Try to prevent fluid overload. Once patient's medications are entered into the chart will add as needed. Family states that patient is a DNR. I have reviewed previous medical records 02/11/2019 Much improved today on BiPAP. Potassium slightly up 5.8 GFR slightly up as well BUN up but creatinine down BNP today is 658, will increase fluids to 150/h up from 100 Anticipate discharge tomorrow morning 02/12/2019 Labs appear to be improving at the very least stable. Includes glucose as well as electrolytes and CBC Chest x-ray shows vascular congestion and interstitial edema but no pneumonia Patient is on Solu-Medrol 40 every 8. Her potassium yesterday was 5.8 today it is 5.2 on Kayexalate. Keep her 1 more day on Kayexalate and discharge her in the morning Patient is on no antibiotics - Time Time Spent with patient: 25-34 minutes
[2019-02-13] MEDS: METHYLPREDNISOLONE INJ 40 MG/1 ML SDV IV SCH ×3 (03:47→17:49)
[2019-02-13] MEDS: HEPARIN SOD (PORCINE) 5,000 UNIT/ML 1 ML VIAL SUBCUT SCH ×2 (05:58→16:30)
[2019-02-13] MEDS: INSULIN LISPRO 100 UNIT/ML 3 ML VIAL SUBCUT SCH ×3 (08:41→17:48)
[2019-02-13] MEDS: FAMOTIDINE 20 MG TABLET PO SCH (12:52)
[2019-02-13] MEDS: DOCUSATE SODIUM 100 MG CAPSULE PO SCH (12:52)
[2019-02-13] MEDS: NYSTATIN TOPICAL POWDER 15 GM TP SCH (16:29)
--- NOTE | 2019-02-13 17:24 | PDOC DISCHARGE SUMMARY ---
Impression - Admit/DC Date/PCP Admission Date/Primary Care Provider: 02/12/19 13:53 DAVID STONE MD Discharge Date: 02/13/19 - Discharge Diagnosis (1) Hyperlipidemia Is this a current diagnosis for this admission?: Yes (2) Congestive heart failure Is this a current diagnosis for this admission?: No (3) Dependence on continuous supplemental oxygen Is this a current diagnosis for this admission?: Yes (4) COPD exacerbation Is this a current diagnosis for this admission?: Yes (5) Hypoxia Is this a current diagnosis for this admission?: Yes (6) Patient noncompliance Is this a current diagnosis for this admission?: Yes - Assessment Summary: 02/10/2019 We will continue IV steroids 40 mg IV every 8 hours, not place patient on antibiotics at this time as there is no indication for sepsis or infection. We will ask respiratory therapy to monitor and regulate BiPAP. We will try to keep oxygen saturations in the low to mid 90s. Try to prevent fluid overload. Once patient's medications are entered into the chart will add as needed. Family states that patient is a DNR. I have reviewed previous medical records 02/11/2019 Much improved today on BiPAP. Potassium slightly up 5.8 GFR slightly up as well BUN up but creatinine down BNP today is 658, will increase fluids to 150/h up from 100 Anticipate discharge tomorrow morning 02/12/2019 Labs appear to be improving at the very least stable. Includes glucose as well as electrolytes and CBC Chest x-ray shows vascular congestion and interstitial edema but no pneumonia Patient is on Solu-Medrol 40 every 8. Her potassium yesterday was 5.8 today it is 5.2 on Kayexalate. Keep her 1 more day on Kayexalate and discharge her in the morning Patient is on no antibiotics 02/13/2019 Patient has a CPAP machine at home that has not been used in 5 or 6 years. Patient states that "I just stopped using it". Discharge planning was consulted to have someone come and evaluate the machine and clean it so forth. Patient is dependent on her oxygen at home 24 hours a day 7 days a week. Patient does have oxygen at home but would benefit from using her CPAP machine. She was discharged home on a Medrol Dosepak told to follow-up with her racket stringer in the next 7 days Time of discharge today her white count 7.5 H&H 10.1 and 31.9 Yesterday her sodium was 136 potassium 5.2 BUN of 37 creatinine 1.09 GFR 48. She did receive some Kayexalate yesterday for her potassium This x-ray never did show pneumonia Had a long talk with the family yesterday and they were willing today. They felt like patient was back at her baseline Diagnosis is COPD exacerbation #1, #2 would be patient noncompliance for not using her CPAP machine - Additional Information Resuscitation Status: Do Not Resuscitate Discharge Diet: As Tolerated Discharge Activity: Balance Activity w/Rest Referrals: DAVID STONE MD [Primary Care Provider] - 03/01/19 2:30 pm Prescriptions: Methylprednisolone [Medrol Dosepack (4 mg/Tab) 21 Tab/Dosepak] 4 mg PO ASDIR PRN #21 [email or web address] PRN Reason: Home Medications: Albuterol Sulfate [Proair HFA Inhalation Aerosol 8.5 gm MDI] 2 puff IH Q6HP PRN 02/10/19 Allopurinol [Zyloprim 300 mg Tablet] 300 mg PO DAILY 02/10/19 Cetirizine HCl [Zyrtec 10 mg Tablet] 10 mg PO DAILY 02/10/19 Cyanocobalamin (Vitamin B-12) [Vitamin B-12 1000 mcg Tablet] 1,000 mcg PO DAILY 02/10/19 Fluticasone Propionate [Flonase Nasal [place] 50 Mcg/[place] 16 gm] 1 spray NASL DAILY 02/10/19 Furosemide [Lasix 40 mg Tablet] 40 mg PO DAILY 02/10/19 Linaclotide [Linzess] 290 mcg PO DAILY 02/10/19 Ondansetron HCl [Zofran 4 mg Tablet] 4 mg PO DAILYP PRN 02/10/19 Pantoprazole Sodium [Protonix [address] Tablet] 40 mg PO DAILY 02/10/19 Pravastatin Sodium [Pravachol] 40 mg PO QHS 02/10/19 Sertraline HCl [Zoloft] 100 mg PO DAILY 02/10/19 Spironolactone [Aldactone 25 mg Tablet] 25 mg PO DAILY 02/10/19 Valsartan [Diovan 80 mg Tablet] 80 mg PO DAILY 02/10/19 Methylprednisolone [Medrol Dosepack (4 mg/Tab) 21 Tab/Dosepak] 4 mg PO ASDIR PRN #21 [email or web address] 02/13/19 History of Present Illiness History of Present Illness: GHAZALA TOTH is a 78 year old female comes in for apparent COPD exacerbation. Patient is on the BiPAP machine so the history is given by the family. They state that earlier today she went out to the mailbox without her home oxygen and was found down on the ground able to get up because of shortness of breath. Currently patient wears oxygen at home 24 hours a day 7 days a week. When EMS got to the patient her O2 sats were in the 70s. He was given 2 breathing yolie tments and Solu-Medrol by EMS and another breathing treatment in the ER. Fortunately in the ER she was put on 4 L of O2 before it was corrected and then she was placed on BiPAP. Initial blood gas was venous with a pH of 7.28 PCO2 of 84 bicarb 38 base excess 8.9. Repeat blood gas is pending as he is being admitted now. She is somewhat resistant to being admitted but I told her she needs at least one day of BiPAP and further Solu-Medrol. She is really comfortable on the BiPAP machine now. She is DNR. Physical Exam Vital Signs: Temp Pulse Resp BP Pulse Ox 98.0 F 82 28 H 147/72 H 96 02/13/19 11:18 02/13/19 11:18 02/13/19 12:17 02/13/19 11:18 02/13/19 12:17 Intake & Output 02/12/19 02/13/19 02/14/19 06:59 06:59 06:59 Intake Total 1290 2200 Output Total 300 900 Balance 990 1300 Weight 140.6 kg 142.9 kg Results Laboratory Results: WBC 7.5 10^3/uL (4.0-10.5) 02/12/19 08:53 RBC 3.62 10^6/uL (3.72-5.28) L 02/12/19 08:53 Hgb 10.1 g/dL (12.0-15.5) L 02/12/19 08:53 Hct 31.9 % (36.0-47.0) L 02/12/19 08:53 MCV 88 fl (80-97) 02/12/19 08:53 MCH 27.8 pg (27.0-33.4) 02/12/19 08:53 MCHC 31.5 g/dL (32.0-36.0) L 02/12/19 08:53 RDW 16.2 % (11.5-14.0) H 02/12/19 08:53 Plt Count 149 10^3/uL (150-450) L 02/12/19 08:53 Lymph % (Auto) 7.6 % (13-45) L 02/12/19 08:53 [place] % (Auto) 4.7 % (3-13) 02/12/19 08:53 Eos % (Auto) 0.0 % (0-6) 02/12/19 08:53 Baso % (Auto) 0.2 % (0-2) 02/12/19 08:53 Absolute Neuts (auto) 6.6 10^3/uL (1.7-8.2) 02/12/19 08:53 Absolute Lymphs (auto) 0.6 10^3/uL (0.5-4.7) 02/12/19 08:53 Absolute Monos (auto) 0.4 10^3/uL (0.1-1.4) 02/12/19 08:53 Absolute Eos (auto) 0.0 10^3/uL (0.0-0.6) 02/12/19 08:53 Absolute Basos (auto) 0.0 10^3/uL (0.0-0.2) 02/12/19 08:53 Seg Neutrophils % 87.5 % (42-78) H 02/12/19 08:53 Carbonic Acid 2.33 mmol/L (1.05-1.35) H 02/10/19 17:35 HCO3/H2CO3 Ratio 16:1 02/10/19 17:35 ABG pH 7.31 (7.35-7.45) L 02/10/19 17:35 ABG pCO2 77.4 mmHg (35-45) H* 02/10/19 17:35 ABG pO2 65.5 mmHg (80-100) L 02/10/19 17:35 ABG HCO3 38.4 mmol/L (20-24) H 02/10/19 17:35 ABG Total CO2 40.7 mmol/L (21-25) H 02/10/19 17:35 ABG O2 Saturation 90.1 % (94-98) L 02/10/19 17:35 ABG Base Excess 9.6 mmol/L 02/10/19 17:35 VBG pH 7.28 (7.30-7.42) L 02/10/19 15:10 VBG pCO2 84.0 mmHg (35-63) H* 02/10/19 15:10 VBG HCO3 38.2 mmol/L (20-32) H 02/10/19 15:10 VBG Base Excess 8.9 mmol/L 02/10/19 15:10 FiO2 3L 02/10/19 17:35 Sodium 136.2 mmol/L (137-145) L 02/12/19 08:53 Potassium 5.2 mmol/L (3.6-5.0) H 02/12/19 08:53 Chloride 94 mmol/L (98-107) L 02/12/19 08:53 Carbon Dioxide 35 mmol/L (22-30) H 02/12/19 08:53 Anion Gap 7 (5-19) 02/12/19 08:53 BUN 37 mg/dL (7-20) H 02/12/19 08:53 Creatinine 1.09 mg/dL (0.52-1.25) 02/12/19 08:53 Est GFR ( Amer) 58 (>60) L 02/12/19 08:53 Est GFR (MDRD) Non-Af 48 (>60) L 02/12/19 08:53 Glucose 125 mg/dL (75-110) H 02/12/19 08:53 POC Glucose 173 mg/dL (70-110) H 02/13/19 16:15 Calcium 9.3 mg/dL (8.4-10.2) 02/12/19 08:53 Total Bilirubin 0.6 mg/dL (0.2-1.3) 02/10/19 14:20 Direct Bilirubin 0.2 mg/dL (0.0-0.4) 02/10/19 14:20 Neonat Total Bilirubin Not Reportable 02/10/19 14:20 Neonat Direct Bilirubin Not Reportable 02/10/19 14:20 Neonat Indirect Bili Not Reportable 02/10/19 14:20 AST 16 U/L (14-36) 02/10/19 14:20 ALT 12 U/L (<35) 02/10/19 14:20 Alkaline Phosphatase 93 U/L (38-126) 02/10/19 14:20 Creatine Kinase 32 U/L (30-135) 02/10/19 14:20 CK-MB (CK-2) 0.41 ng/mL (<4.55) 02/10/19 14:20 Troponin I < 0.012 ng/mL 02/10/19 14:20 NT-Pro-B Natriuret Pep 658 pg/mL (<450) H 02/11/19 04:41 Total Protein 6.6 g/dL (6.3-8.2) 02/10/19 14:20 Albumin 4.0 g/dL (3.5-5.0) 02/10/19 14:20 Urine Color YELLOW 02/10/19 22:30 Urine Appearance SLIGHTLY-CLOUDY 02/10/19 22:30 Urine pH 5.0 (5.0-9.0) 02/10/19 22:30 Ur Specific [place] 1.015 02/10/19 22:30 Urine Protein NEGATIVE mg/dL (NEGATIVE) 02/10/19 22:30 Urine Glucose (UA) NEGATIVE mg/dL (NEGATIVE) 02/10/19 22:30 Urine Ketones NEGATIVE mg/dL (NEGATIVE) 02/10/19 22:30 Urine Blood NEGATIVE (NEGATIVE) 02/10/19 22:30 Urine Nitrite NEGATIVE (NEGATIVE) 02/10/19 22:30 Urine Bilirubin NEGATIVE (NEGATIVE) 02/10/19 22:30 Urine Urobilinogen NEGATIVE mg/dL (<2.0) 02/10/19 22:30 Ur Leukocyte Esterase TRACE (NEGATIVE) H 02/10/19 22:30 Urine WBC (Auto) 5 /HPF 02/10/19 22:30 Urine RBC (Auto) 1 /HPF 02/10/19 22:30 U Hyaline Cast (Auto) 16 /LPF 02/10/19 22:30 Urine Bacteria (Auto) TRACE /HPF 02/10/19 22:30 Squamous Epi Cells Auto 3 /HPF 02/10/19 22:30 Urine Mucus (Auto) RARE /LPF 02/10/19 22:30 Urine Ascorbic Acid NEGATIVE (NEGATIVE) 02/10/19 22:30 02/10/19 02/10/19 02/11/19 14:20 14:20 04:41 CK-MB (CK-2) 0.41 Troponin I < 0.012 NT-Pro-B Natriuret Pep 349 658 H Impressions: Chest X-Ray 02/10/19 13:53 IMPRESSION: Stable cardiomegaly with vascular congestion and interstitial edema. No large effusion. Stroke Is this a Stroke Patient?: No Acute Heart Failure - Is this a Heart Failure Patient?: No
[2019-02-13 17:37] VITALS: BP 132/59
== END 2019-02-13 18:52 | disposition home or self-care (01) | DRG 191 ==
LOC: ER 13:50 → INTOOBSV 16:47 → EH 16:47 → 5 02-11 → OBSVTOIN 02-12 13:53
PROVIDERS: ADMIT Hospitalist; ATTEND Hospitalist
PROC: 5A09457 Assistance with Respiratory Ventilation, 24-96 Consecutive Hours, Continuous Positive Airway Pressure (ICD-10-PCS; principal; 2019-02-10)
DX: J44.1 Chronic obstructive pulmonary disease with (acute) exacerbation (principal); Z68.43 Body mass index [BMI] 50.0-59.9, adult; E78.5 Hyperlipidemia, unspecified; R09.02 Hypoxemia; Z66 Do not resuscitate; I10 Essential (primary) hypertension; E78.00 Pure hypercholesterolemia, unspecified; E66.01 Morbid (severe) obesity due to excess calories; Z96.653 Presence of artificial knee joint, bilateral; Z91.19 Patient's noncompliance with other medical treatment and regimen; Z99.81 Dependence on supplemental oxygen; Z23 Encounter for immunization; Z79.899 Other long term (current) drug therapy; Z88.1 Allergy status to other antibiotic agents; Z88.3 Allergy status to other anti-infective agents; Z87.891 Personal history of nicotine dependence
CPT/HCPCS: 36415; 36600; 71045; 80048; 80053; 81001; 82550; 82553; 82803; 82962; 83880; 84484; 85025; 90686; 93005; 93010; 94640; 94660; 99285; G0378; J1644; J1815; J2920; J3490; J7030; J7620